=== PATIENT | male | born 1970 | race Caucasian/White ===

== ENCOUNTER 2025-09-13 09:53 | Emergency (ER) | payer OTHER, SELFPAY ==
[2025-09-13 09:59] VITALS: BP 121/88
[2025-09-13 11:39] LABS: Hematocrit 44.9 % (39.0-52.0); Hemoglobin 15.8 g/dL (13.0-18.0); Mean Corp Hgb Conc. 35.2 g/dL (33.0-37.0); Mean Corpuscular Volume 94.9 fL (80.0-94.0); Nucleated Red Blood Cells % 0 % (-); Platelet Count 191 10^3/uL (130-400); Red Cell Dist. Width 12.0 % (11.5-14.5)
--- NOTE | 2025-09-13 11:49 | ED.GENMED ---
History of Present Illness
General
Chief Complaint: Abdominal Pain
Source: patient
Time Seen by Provider: 09/13/25 11:10
History of Present Illness
History of Present Illness:
55-year-old male with past medical history of hyperlipidemia and hypothyroidism presenting to the emergency department for evaluation at the request of his primary care provider due to ongoing abdominal pain within the periumbilical region described
to be waxing and waning, when more bothersome he states it feels like a dull cramping sensation intermittently accompanied with nausea and chills, presently asymptomatic. Patient reports that at onset of the symptoms he had been starting to travel
for a business trip to [place], symptoms seem to be resolved after about 24 to 48 hours, went to a [employer] on Saturday night and states Saturday morning started with the recurring symptoms again. No fevers, no chills or rigors. Patient
does note diminished p.o. intake to solids but not liquids. He did not eat anything yet today but states he did drink a little bit of water. Social history noncontributory. Surgical history noted for previous appendectomy.
Past History
Past History
ED Past Medical History: Hypercholesterolemia and Hypothyroidism
ED Past Surgical History: Appendectomy
Social History
Tobacco: Non-smoker
Alcohol: Occasional
Drug: None
Personal:
Living: with family
Employment: Employed
Review of Systems
Review of Systems
All Other Systems: ROS reviewed and negative except as documented in HPI and ROS
Phy Exam
Physical Exam
Physical Exam:
GENERAL: Alert , in no apparent distress
EYE: clear conjunctiva b/l
HEAD: NCAT
ENT: o/p clr, mmm.
CARDIAC: Regular rate and rhythm .
LUNGS: Clear breath sounds bilaterally, no acute respiratory distress, no wheezes/rales/rhonchi
ABDOMEN: Soft, without focal tenderness, no r/g, no cvat
NEUROLOGICAL: Alert and oriented
SKIN: Warm and dry, skin intact.
MUSCULOSKELETAL: No edema, well perfused.
PSYCH: Normal and appropriate interaction.
Scores
Heart Failure Risk
Heart Failure Risk Score: Not Applicable
Heart Score for Chest Pain Patients
STEMI patient?: Not applicable
Withdrawal Assessment of Alcohol
Withdrawal Assessment Completed?: Not applicable
Course
Orders/Labs/Results
Orders:
Orders
09/13/25 11:17
Electrocardiogram (*1) Urgent
Reason for Study: Abdominal Pain
CT Abd/pelvis W Iv Cont Urgent
Comment:
Reason For Exam: waxing/waning periumbilcal abd pain
EKG- Treatment ONCE
09/13/25 11:26
Complete Blood Count/With Diff Urgent
Comprehensive Metabolic Panel Urgent
Lipase Urgent
Troponin I Urgent
Abnormal Lab Results
09/13/25
11:26
MCV 94.9 H fL
(80.0-94.0)
MCH 33.4 H pg
(27.0-31.0)
Absolute Lymphs (auto) 1.1 L 10^3/uL
(1.2-3.4)
Absolute Monos (auto) 0.8 H 10^3/uL
(0.1-0.6)
Monocytes % 15.0 H %
(1.7-9.3)
Sodium 134 L mmol/L
(135-145)
09/13/25 11:26
09/13/25 11:26
Vital Signs
Initial and Last Documented VS:
Initial Vital Signs
Temp Pulse Resp BP Pulse Ox
97.5 F 83 16 121/88 99
09/13/25 09:59 09/13/25 09:59 09/13/25 09:59 09/13/25 09:59 09/13/25 09:59
Last Documented Vital Signs
Temp Pulse Resp BP Pulse Ox
97.5 F 83 16 121/88 99
09/13/25 09:59 09/13/25 09:59 09/13/25 09:59 09/13/25 09:59 09/13/25 11:53
MDM/Problems Addressed
Differential Diagnosis Includes:
GERD
Gastritis
PUD
Cholelithiasis/Cholecystitis
Pancreatitis
Diverticulitis
Colitis
Atypical ACS
MDM/Problems Addressed:
55-year-old male presenting to the emergency department for evaluation of abdominal pain that waxes and wanes, intermittent nausea. Presently asymptomatic. Contacted primary care provider but was directed to the ER. Patient's abdominal exam
reassuring. Vitals normal, will check labs and CT imaging. Disposition pending.
*Radiology
Radiology exam reviewed: radiology read reviewed
*Pulse Oximetry
SaO2: 99
Oxygen Mode of Delivery: Room air
Patient hypoxic: no
*Critical Care Note
Total Time (30-74mins, 75-104mins- exclusive of procedures): Not Applicable
Data Reviewed
Review of Other/Old Records Reveals: Records
Patient Management
Escalation/DeEscalation of care consider admission/obs:
CT findings as below
IMPRESSION:
Tiny nonobstructing left renal calculi. No right renal calculi. No hydronephrosis or obstructive uropathy.
Relatively minor diverticulosis of the distal descending colon and sigmoid colon. No evidence of acute diverticulitis.
Suggestion of subtle small bowel wall thickening in the distal ileum, with associated low level edema of the associated small bowel mesentery in the right lower quadrant. Uncertain etiology. Possibly infectious or inflammatory.
No proximal dilatation or evidence of bowel obstruction.
The appendix is absent.
2 cm umbilical hernia containing fat.
Mild ascites in the pelvis.
Patient was provided with a printout of his CT report. Reviewed these findings with the patient. At this time I do think it is reasonable for patient be discharged home, follow-up with primary care provider. Discussed return precautions.
ED Attending Note
-
Portions of this chart may have been created with voice recognition software.� Occasional wrong word or��sound alike� substitutions may have occurred due to the inherent limitations of voice recognition software.
Discharge Plan
Departure
Patient Disposition: Home (Routine Discharge)
Date of Disposition: 09/13/25
Time of Disposition: 14:09
Patient with high blood pressure during this ER visit?: No
Discharge Problem:
Abdominal pain
Instructions: Abdominal Pain
Prescriptions:
No Action
atorvastatin 10 MG tablet
20 mg PO QPM
levothyroxine [Synthroid] 50 MCG tablet
50 mcg PO DAILY
oxycodone-acetaminophen 5 MG/325 MG tablet
1 tab PO Q4HPRN PRN (Reason: moderate to severe pain) Qty: 15 0RF
Referrals:
Marquez Johnson CRNP [Family Provider, Internal Medicine]
Interventions
Interventions:
FQ-[id number]-[id number] Assessment Last Done: 09/13/25 11:24
Discharge Date and Time
Print Language: SETSWANA
[2025-09-13 11:57] LABS: ALT (SGPT) 22 U/L (0-50); AST (SGOT) 23 U/L (17-59); Albumin 4.5 g/dl (3.5-5.0); Alkaline Phosphatase 71 U/L (38-126); Blood Urea Nitrogen 16 mg/dl (9-20); Calcium 9.2 mg/dl (8.4-10.2); Carbon Dioxide 26 mmol/L (22-30); Chloride 100 mmol/L (98-107); Glucose 76 mg/dl (70-99); Lipase 103 U/L (23-300); Potassium 3.9 mmol/L (3.5-5.1); Sodium 134 mmol/L (135-145); Total Protein 7.4 g/dl (6.3-8.2); eGFR > 60.00
[2025-09-13 11:59] LABS: Troponin I < 0.012 ng/ml
== END 2025-09-13 14:42 | disposition home or self-care (01) ==
LOC: EMR 09:53
PROVIDERS: Physician Assistant Medical; EMERGENCY PHYSICIAN Emergency Medicine; FAMILY PHYSICIAN Registered Nurse
DX: R10.9 Unspecified abdominal pain (principal); K57.30 Diverticulosis of large intestine without perforation or abscess without bleeding; N20.0 Calculus of kidney; K42.9 Umbilical hernia without obstruction or gangrene; R18.8 Other ascites; E03.9 Hypothyroidism, unspecified; E78.00 Pure hypercholesterolemia, unspecified; Z90.49 Acquired absence of other specified parts of digestive tract
CPT/HCPCS: 99284; 74177; 80053; 83690; 84484; 85025; 93005; Q9967